=== PATIENT | female | born 1945 | race Caucasian/White ===

== ENCOUNTER 2024-02-11 04:33 | Emergency (ER) | payer BC, SELFPAY ==
[2024-02-11 04:38] VITALS: BP 157/66
[2024-02-11] MEDS: LET TOPICAL ANESTHETIC GEL 3 ML TOPICAL (05:19)
--- NOTE | 2024-02-11 05:44 | ED.SKININJ ---
HPI-Injury
<Maria Luz (Yulia) SAMUEL Quezada - Last Filed: 02/11/24 07:15>
General
Chief Complaint: Fall
Source: patient, spouse and family (daughter)
Exam Limitations: none
Time Seen by Provider: 02/11/24 05:03
Nursing documentation reviewed up to this point in time: agreed with
History of Present Illness-Injury
Is this injury a work related problem?: No
Is pt an associate of [facility]?: No
Initial Injury comments:
Pt is a 78 yo female with PMHx of Alzheimers dementia, IDDM, hypothyroid, glaucoma, who presents to the ED with and daughter after suffering an unwitnessed fall at 2200 last night (02/09). Per , they got home around 2130, he locked the
front door to prevent pt from leaving house, and went upstairs to use the restroom. While upstairs, he heard a thud, and when he came back down, pt was in the vestibule after attempting to elope. She was awake and alert, appropriately responding to
commands. She suffered a laceration to her head and developed bruising to the periorbital and temporal region of the R side of her face, and abrasions to her R upper back. Per , there are 4 steps in the vestibule and an iron railing, unsure
what she hit her head on. Unknown LOC. Daughter came to scene and assessed for concussion, stated pt was able to identify herself and recognize her daughter as usual. Scalp laceration continued to bleed, pressure was applied. Pt without complaints,
but pt does not complain of pain at baseline.
They went to an [facility] ([facility] after incident, where she had a CT scan of the head, C-spine, and facial bones, but [facility]. Family decided to leave to seek care at ED after being told it would be over [address].
Pt is not on anticoagulants. She does not take aspirin.
Past History
<SAMUEL Oconnor (Lenka) - Last Filed: 02/11/24 07:15>
Past History
ED Past Medical History: IDDM, Hypothyroidism and Other (Alzheimers)
Social History
Personal:
Living: with family
Skin Exam
<SAMUEL Oconnor (Lenka) - Last Filed: 02/11/24 07:15>
Laceration
Left Anterior Scalp:
Length in cm: 6.5
Orientation: diagonal
Type of Laceration: simple
Any active bleeding?: no active bleeding
Phy Exam
<SAMUEL Oconnor (Lenka) - Last Filed: 02/11/24 07:15>
General Physical Exam
General Presentation: no apparent distress
General age: appears stated age
General Skin: warm and dry
General Habitus: frail
General Mental: usual mental status
ENT Exam
ENT Exam: TM's normal
Eye Exam
Eye Exam: PERRL and conjunctiva normal
Cardiovascular Exam
Cardiovascular Exam: regular rate/rhythm, no edema and normal peripheral pulses
Pulmonary Exam
Pulmonary Exam: lungs clear and no respiratory distress
Neurological Exam
Neurological Exam: other (initially responsive to questions)
Skin Exam
Skin Exam: laceration (scalp, 6.5cm)
Course
<ST Ocononr (Lenka)NE - Last Filed: 02/11/24 07:15>
Orders/Labs/Results
Orders:
Orders
02/11/24 05:18
Lidocaine/Epinephrine/Tetracai [Let Topical Anesthetic Gel] 3 ml .ROUTE .STK-MED ONE
02/11/24 05:19
Lidocaine/Epinephrine/Tetracai [Let Topical Anesthetic Gel] 3 ml TOPICAL NOW STA
Vital Signs
Initial and Last Documented VS:
Initial Vital Signs
Temp Pulse Resp BP Pulse Ox
98.2 F 63 20 157/66 97
02/11/24 04:38 02/11/24 04:38 02/11/24 04:38 02/11/24 04:38 02/11/24 04:38
Last Documented Vital Signs
Temp Pulse Resp BP Pulse Ox
98.2 F 63 20 157/66 97
02/11/24 04:38 02/11/24 04:38 02/11/24 04:38 02/11/24 04:38 02/11/24 04:38
<Bea Murray MD - Last Filed: 02/11/24 07:15>
Orders/Labs/Results
Orders:
Orders
02/11/24 05:18
Lidocaine/Epinephrine/Tetracai [Let Topical Anesthetic Gel] 3 ml .ROUTE .STK-MED ONE
02/11/24 05:19
Lidocaine/Epinephrine/Tetracai [Let Topical Anesthetic Gel] 3 ml TOPICAL NOW STA
Vital Signs
Initial and Last Documented VS:
Initial Vital Signs
Temp Pulse Resp BP Pulse Ox
98.2 F 63 20 157/66 97
02/11/24 04:38 02/11/24 04:38 02/11/24 04:38 02/11/24 04:38 02/11/24 04:38
Last Documented Vital Signs
Temp Pulse Resp BP Pulse Ox
98.2 F 63 20 157/66 97
02/11/24 04:38 02/11/24 04:38 02/11/24 04:38 02/11/24 04:38 02/11/24 04:38
Procedures
<SAMUEL Oconnor (Lenka) - Last Filed: 02/11/24 07:15>
Laceration Closure
Scalp:
Number of sutures: 9
<Bea Murray MD - Last Filed: 02/11/24 07:15>
Laceration Closure
Scalp:
Status of Wound: clean
Size of Wound in cm: 6.5
Description of Wound Edges: sharp
Preparation: cleaned with saline
Anesthesia: 1% Lidocaine with epi and Topical-LET
Revision/Debridement: routine- no revision
Wound exploration: explored to base- no FB
Type of Closure: single layer closure
Skin Closure Material: 4-0 nylon
Number of sutures: 8
<SAMUEL Oconnor (Lenka) - Last Filed: 02/11/24 07:15>
MDM/Problems Addressed
Differential Diagnosis Includes:
78 yo female with dementia and IDDM presenting after an unwitnessed fall around 2200 last night. She [facility] to [facility] where a CT scan of the head, C-spine, and facial bones was performed, but due to long wait times, pt and family
left and came to ED. Family reports no change in usual mental status or level of consciousness from baseline. Pt with 6.5 cm superficial laceration to scalp and periorbital and temporal bruising to R side of face.
[facility] went to [facility] ([facility]) after incident, where she had a CT scan of the head, C-spine, and facial bones, but were [facility]. Family decided to leave to seek care at ED after being told it would be over [address].
Pt is not on anticoagulants. She does not take aspirin.
DDx: head laceration, basilar skull fracture, facial bone fracture, epidural hematoma
Due to the 9 hour observation period patient has already undergone without change in baseline mental status and no worsening of symptoms, lack of hemotympanum, post-auricular ecchymosis, and no use of anticoagulants, a basilar skull fracture is less
likely.
Scalp lac repaired with 9 sutures. Patient to be dispo'd home with family observation and instructions on when to return. Awaiting results of CT done at OSH.
<Maria Luz Polanco) SAMUEL Quezada - Last Filed: 02/11/24 07:15>
*Critical Care Note
Total Time (30-74mins, 75-104mins- exclusive of procedures): Not Applicable
ED Attending Note
<Maria Luz Polanco) SAMUEL Quezada - Last Filed: 02/11/24 07:15>
-
Portions of this chart may have been created with voice recognition software.� Occasional wrong word or��sound alike� substitutions may have occurred due to the inherent limitations of voice recognition software.
<Bea Murray MD - Last Filed: 02/11/24 07:15>
ED Attending Note
Patient seen and examined by attending physician: Yes
I performed the substantive portion of visit, reviewed & personally made and approve the management plan that is documented in note by myself or MOUNA.: Yes
ED Attending Note:
78 yr old female, hx of dementia, suffered a fall while at home ( had to leave room to use br and she was alone), no loc. They went to an outside hosp for eval...CT's done but no results...given wait, present to . Event happened at 9pm.
No thinners/ap agents. Pt is acting her usual self, focusing when they ask her to, speaking as usual, etc. Pt noted to have 6.5 cm laceration top of head. Not UTD on Td. Pt typically expresse pain if she has it, no comlnts at this time. On
exam, 6.5 cm lac superficial to levle of ST at L side of top of scalp. Right frontal and infraorbital ecchymosis, no crepits or bony ttp. No signs head/facial inj otherise. Neck nontnder to palpation. hrt rrr lung cta abd soft, tn, nd. Speech
clear, smiles, pleasant. maee.
Patient presents to the Emergency Department with ____fall, laceration
Number and Complexity of Problems Addressed at the Encounter
� Chronic conditions affecting care:
� Acute Exacerbation and/or Progression of Chronic Illness:
� Differential Diagnosis includes:but not limited to facial fx, closed head injury, etc.
Amount and/or Complexity of Data to be Reviewed and Analyzed
� I performed an independent evaluation of and my interpretation is:
EKG:
CT:
Xrays:
Laboratory Studies:
Other:
� Review of other/old records reveals:
� Clinical information was obtained by an independent historian:
� Prescriptions/Medications Considered but not given:
� Further testing considered but not performed:
Risk of Complications and/or Morbidity or Mortality of Patient Management
� Social determinants of health affecting care:
� Discussion with other providers (PCP, Hospitalists, Consultants, etc):
� Escalation of care including admission/observation vs risk of discharge considered: We called the outside hospital the patient was seen and results are not yet available on the CAT scan. Long Long discussion with patient's
family, and daughter regarding risk of abnormalities of head neck and facial bone CT versus rescanning here, etc. Clinically, given injury happened at 9 PM, and patient remains neurologically at her baseline, I think it is extremely
unlikely that she has intracranial injury. Also felt to be unlikely that she has a facial fracture or cervical injury given she does not exhibit pain or tenderness or other symptoms. With shared decision making, family understands risks, and
prefer to defer scans here, will follow-up later today regarding results, aware of reasons to return the emergency department importance of follow-up.
Discharge Plan
Departure
Patient Disposition: Home (Routine Discharge)
Date of Disposition: 02/11/24
Time of Disposition: 06:58
Patient with high blood pressure during this ER visit?: Yes
Discharge Problem:
Fall, Laceration
Instructions: Head Injury in Adults (DC), Laceration Repair With Stitches (DC), Preventing falls in adults, BLOOD PRESSURE
Referrals:
PRIVATE,PHYSICIAN [Family Provider] -
Activity Restrictions/Additional Instructions:
YOU HAD 9 STITCHES PLACED, THEY NEED TO BE REMOVED IN ABOUT 10 DAYS. PLEASE SEE YOUR FAMILY DOCTOR TO HAVE THIS DONE. IF YOU DEVELOP CHEST PAIN, TROUBLE BREATHING, FEVER, NECK PAIN, VOMITING, HEADACHE, LETHARGY, CHANGE IN BEHAVIOR, OR OTHER
WORRISOME SIGNS, GO TO THE ER IMMEDIATELY!
Interventions
Interventions:
*Risk Screen - Suicide Last Done: 02/11/24 04:38
*General Assessment Last Done: 02/11/24 04:38
*Neglect/Abuse Screening Last Done: 02/11/24 04:38
ED- Fall Risk Assessment Last Done: 02/11/24 04:38
*ED COVID-19 Vaccine History Last Done: 02/11/24 04:38
*Nursing Disposition Last Done: 02/11/24 07:13
ED-Musculoskeletal Assessment Last Done: 02/11/24 05:11
ED- Neurological Assessment Last Done: 02/11/24 05:11
ED-Skin Assessment Last Done: 02/11/24 05:11
Discharge Date and Time
Print Language: FRISIAN
--- NOTE | 2024-02-11 06:49 | EDRN ---
Student is finishing suturing patient at this time, family at bedside with them.
== END 2024-02-11 07:26 | disposition home or self-care (01) ==
LOC: EMR 04:33
PROVIDERS: EMERGENCY PHYSICIAN Emergency Medicine
DX: S01.01XA Laceration without foreign body of scalp, initial encounter (principal); W19.XXXA Unspecified fall, initial encounter; R03.0 Elevated blood-pressure reading, without diagnosis of hypertension; E11.9 Type 2 diabetes mellitus without complications
CPT/HCPCS: 99282; 12002